=== PATIENT | female | born 1995 | race Caucasian/White ===

== ENCOUNTER 2017-10-05 15:03 | Emergency (ER) | payer MEDICAID, OTHER ==
[2017-10-05] MEDS ORDERED: NORMAL SALINE 1,000 ML IV ONE (15:30)
[2017-10-05] MEDS ORDERED: DEXAMETHASONE SODIUM PHOSPHATE 10 MG/ML VIAL IM ONE (15:30)
[2017-10-05] MEDS ORDERED: KETOROLAC TROMETHAMINE 30 MG/ML VIAL IV ONE (15:31)
[2017-10-05] MEDS ORDERED: DEXAMETHASONE SODIUM PHOSPHATE 10 MG/ML VIAL ONE (15:48)
[2017-10-05] MEDS ORDERED: KETOROLAC TROMETHAMINE 30 MG/ML VIAL ONE (15:48)
[2017-10-05 15:53] LABS: Hematocrit 39.4 % (37.0-47.0); Hemoglobin 13.2 gm/dL (12.5-16.0); Mean Cell Volume 80.6 fl (78-100); Mean Corpuscular Hgb Conc 33.5 g/dl (32-36); Mean Platelet Volume 10.3 fl (6.0-9.5); Neutrophil # 4.7 K/mm3 (1.3-6.0); Neutrophil % 65.5 % (42-75.0); Platelet Count 230 K/mm3 (150-450); Red Blood Count 4.89 M/mm3 (4.2-5.4); Red Cell Distribution Width 12.2 % (11.5-14.0); White Blood Count 7.1 K/mm3 (4.0-10.5)
[2017-10-05 16:05] LABS: Albumin * 3.5 gm/dl (3.4-5.0); BUN/Creatinine Ratio 8.1 (9.0-21.6); Bilirubin, Total 0.4 mg/dL (0.0-1.1); Calcium * 8.9 mg/dL (7.9-10.9); Carbon Dioxide 30.1 mmol/L (24-32.6); Potassium 4.1 mmol/L (3.4-4.6); Total Protein 7.8 gm/dL (6.2-8.2)
[2017-10-05] MEDS ORDERED: PROMETHAZINE HCL 25 MG/ML AMPUL IM ONE (16:15)
[2017-10-05] MEDS ORDERED: PROMETHAZINE HCL 25 MG/ML AMPUL ONE (16:18)
[2017-10-05 16:51] VITALS: BP 137/75
--- NOTE | 2017-10-05 16:54 | ERNOTE ---
[facility] Date of Service: 10/05/17 Presenting Symptoms: dental pain Time Seen by Provider: 10/05/17 15:20 Source: patient Exam Limitations: no limitations - Immun/Allergies/Home Medications Immunizations: IMMUNIZATION HX Immunizations Up to Date Yes History of Influenza Vaccine No Hx Pneumococcal Vaccination No Allergies/Adverse Reactions: Allergies Allergy/AdvReac Type Severity Reaction Status Date / Time amoxicillin [Amoxicillin] Allergy Severe Anaphylaxis Verified 10/05/17 15:20 sulfamethoxazole Allergy Intermediate Hives Verified 10/05/17 15:20 [From Bactrim] trimethoprim [From Bactrim] Allergy Intermediate Hives Verified 10/05/17 15:20 Home Medications: HOME MEDICATIONS Clindamycin HCl 150 mg PO QID 10/05/17 [Last Taken Unknown] HYDROcodone/ACETAMINOPHEN [[place] 5-325] 2 tab PO PRN 10/05/17 [Last Taken Unknown] - History of Present Illness Narrative: Patient presents to the ED for dental pain after having her wisdom teeth removed. She relates she has been having ongoing pain, tried to get ahold of her dentist but did not get a call back. pain in her bilateral wisdom teeth area. She relates she has severe tooth pain today and it caused her to get lightheaded. She felt like she was going to pass out and fell to the ground. She felt like she may have briefly passed out and hit her jaw on the carpet. She relates that she has passed out several times in the past d/t pain. no CP or SOB. No head injury. No neck pain. No N/T/W. No trouble breathing or chest pain. Severity: Present: moderate ENT Location: Present: dental Prearrival Treatment: Present: other - home meds Modifying Factors - Improves: Reports: nothing Modifying Factors - Worsens: Reports: nothing Associated Symptoms - ENT: Reports: poor solid intake, tooth pain. Denies: cough, sore throat, drooling Prior Treament: Reports: recently seen Review of Systems - Review of Systems Constitutional: Absent: fever ENT: Present: no symptoms reported Respiratory: Absent: shortness of breath Cardiology: Absent: chest pain Gastrointestinal/Abdominal: Absent: vomiting, abdominal pain Musculoskeletal: Present: no symptoms reported Skin: Absent: rash Neurological: Absent: weakness - Patient's Past Medical History Patient History - Medical: No pertinent hx Patient History - Cardiac/Respiratory: No pertinent hx Patient History - Cancer: No Hx of Cancer Patient History - Surgical Procedures: T & A, Other Patient History - Other: None LMP (females 10-50): 3 weeks - Social History Living Situations: other Abuse History: No History of abuse Psych History: No pertinent hx Smoking Status: Former smoker Have you smoked in the past 12 months: No Do you dip or chew tobacco: No Alcohol Use: none Drug Use: none - Immunizations Immunizations Up to Date: Yes Hx Pneumococcal Vaccination: No History of Influenza Vaccine: No Physical Exam - Physical Exam General Appearance: Present: alert, no apparent distress Head Exam: Present: normal inspection, no evidence of injury Eye Exam: Normal inspection: bilateral, PERRL: bilateral Ears, Nose, Throat: Present: other - There is mild bilateral jaw tenderness. No abscess. No ANUG. It appears to clot is not in the sockets bilaterally. No other facial bone tenderness. Neck: Present: normal inspection, nontender, other - no clinical findings of c- spine fracture. Absent: tender posterior midline Respiratory: Present: no respiratory distress, normal breath sounds, no accessory muscle use, lungs clear Cardiovascular/Chest: Present: regular rate, rhythm, normal peripheral pulses Gastrointestinal/Abdominal: Present: normal bowel sounds, nontender, nondistended, soft Back Exam: Present: normal range of motion Extremity Exam: Present: normal inspection, no edema, other - no DVT findings. Neurological Exam: Present: alert, no motor/sensory deficits Skin Exam: Present: normal color, warm/dry ED Progress - Results and Orders Patient's Lab Results:: I have reviewed the patient's lab results. - Vital Signs Patient's Vital Signs:: I have reviewed the patient's vital signs. Vital Signs: Vital Signs 10/05/17 10/05/17 10/05/17 15:10 15:57 16:29 Temperature 37.1 C 37.1 C 37.0 C Pulse Rate 87 80 73 Respiratory 16 16 16 Rate Blood Pressure 134/78 129/73 O2 Sat by Pulse 98 98 98 Oximetry - X-Ray X-Ray #1 X-Ray: facial bones Interpretation: Interp. by me X-ray Comments: No real time read by radiology. No gross abnormality by my exam. - Progress/Reassessment Chief Complaint: Dental Problem Progress Note-Subjective: 10/05/17 16:50 Improved with meds and IV fluids. Rhythm strip shows NSR. No suggestion of head injury, PE, dysrhythmia or other acute life threat. She feels like going home. No suggestion of airway problem. No suggestion of Duy's angina or ANUG. She needs to get back in to see the dentist. I discussed warning signs and reasons to return as well as the need for close f/u. Departure Clinical Impression: Pain, dental, Fall, Facial pain - Departure Disposition: Home self-care Condition: Stable Additional Instructions: Rest. Fluids. Continue your current medications. See your dentist as soon as possible. Follow-up with your doctor this week. Your x-rays will be read by the radiologist tomorrow, if there is a finding not identified today you will be called. Return for fever, lightheadedness or if your condition worsens or changes in any way.
== END 2017-10-05 17:02 | disposition home or self-care (01) ==
LOC: ER 15:03
DX: K08.89 Other specified disorders of teeth and supporting structures (principal); R51 Headache; Z87.891 Personal history of nicotine dependence; W19.XXXA Unspecified fall, initial encounter; Y92.89 Other specified places as the place of occurrence of the external cause

== ENCOUNTER 2018-08-28 13:55 | Inpatient (IN) ==
[2018-08-28] MEDS ORDERED: OXYTOCIN/DEXTROSE 5%-WATER 30 UNITS/500 ML BAG IV ONE (14:24)
[2018-08-28] MEDS ORDERED: ONDANSETRON HCL/PF 2 MG/ML VIAL IV PRN (14:24)
[2018-08-28] MEDS ORDERED: RINGER'S SOLUTION,LACTATED 1,000 ML IV ONE (14:24)
[2018-08-28] MEDS ORDERED: LIDOCAINE HCL 50 ML VIAL PERI PRN (14:24)
[2018-08-28] MEDS ORDERED: NALBUPHINE HCL 10 MG/ML AMPUL IV PRN ×2 (14:24)
[2018-08-28] MEDS ORDERED: MISOPROSTOL 100 MCG TABLET VG PRN (14:24)
[2018-08-28] MEDS: RINGER'S SOLUTION,LACTATED 1,000 ML IV PRN ×2 (15:42→23:09)
[2018-08-28 15:46] LABS: Cocaine Ur Negative (NEGATIVE); Urine Barbiturate Negative (NEGATIVE); Urine Benzodiazepines Negative (NEGATIVE); Urine Opiates Negative (NEGATIVE); Urine PCP Negative (NEGATIVE); Urine THC Negative (NEGATIVE)
[2018-08-28] MEDS ORDERED: FAMOTIDINE 20 MG TABLET PO ONE (16:00)
[2018-08-29] MEDS: RINGER'S SOLUTION,LACTATED 1,000 ML IV PRN (06:41)
--- NOTE | 2018-08-29 07:33 | PN ---
Progess Note - Interim Date: 08/29/18 Time: 07:30 Narrative: 08/29/18 07:30 Please refer to office visit note dated 08/28/18 for H&P. The patient received cytotec. She is currently on pitocin cvx /-3 Head not yet well applied for safe AROM Reassess in a few hours for AROM Pt desires delayed cord clamping, no bath for baby, and no baby meds FHT cat 1 ctx q 1-4 mins
--- NOTE | 2018-08-29 12:12 | PN ---
Progess Note - Interim Date: 08/29/18 Time: 12:11 Narrative: 08/29/18 12:11 Pt comfortable cvx 3/50/-2 AROM for clear fluid Pitocin currently at 18 milliunits/min ctx q 2 mins FHT cat 1 Continue to titrate pitocin up
[2018-08-29] MEDS ORDERED: BUPIVACAINE HCL/0.9 % NACL/PF 250 ML EP PRN (14:42)
[2018-08-29] MEDS ORDERED: NALOXONE HCL 1 MG/1 ML SYRG IV PRN (14:42)
[2018-08-29] MEDS ORDERED: ONDANSETRON HCL/PF 2 MG/ML VIAL IV PRN (14:42)
[2018-08-29] MEDS ORDERED: fentaNYL CITRATE/PF 50 MCG/ML AMPUL IT SCH (14:45)
--- NOTE | 2018-08-29 15:45 | ANES ---
Anesthesia Pre Procedure Eval Vitals/Labs: Last Vital Signs Temp 36.6 C 08/28/18 15:35 Pulse 107 H 08/28/18 15:35 Resp 16 08/28/18 15:35 BP 146/85 H 08/28/18 15:35 Pulse Ox 98 08/28/18 15:35 HOME MEDICATIONS vitamin,calcium,dwaizmku-dzef-qpgpz acid tablet 1 tab PO DAILY 03/12/18 [Last Taken Unknown] aspirin 81 mg tablet,delayed release 81 mg PO DAILY 04/10/18 [Last Taken 08/28/18 08:00] Allergies/Adverse Reactions: Allergies Allergy/AdvReac Type Severity Reaction Status Date / Time amoxicillin [Amoxicillin] Allergy Severe Anaphylaxis Verified 08/28/18 13:22 sulfamethoxazole Allergy Intermediate Hives Verified 08/28/18 13:22 [From Bactrim] trimethoprim [From Bactrim] Allergy Intermediate Hives Verified 08/28/18 13:22 Penicillins Allergy Anaphylaxis Verified 08/28/18 13:22 Sulfa (Sulfonamide Allergy Erythema Verified 08/28/18 13:22 Antibiotics) - Planned Procedure Planned Procedure: 37.6 WKS ELEV BP Medication List Reviewed:: Yes Allergies Verified: Yes Medical History (Last Reviewed 08/29/18 @ 15:45 by Jerome Harrison CRNA) Influenza vaccination declined by patient (Acute) Onset Date: 06/12/18 Anemia affecting Onset Date: 01/2012 Depression Onset Date: Unknown Generalized anxiety disorder Onset Date: Unknown Gonorrhea Onset Date: Unknown Pre-eclampsia Onset Date: 2009 induced hypertension Onset Date: 2011 History of wisdom tooth extraction Onset Date: Unknown Surgical History (Last Reviewed 08/29/18 @ 15:45 by Jerome Harrison CRNA) Hx of tonsillectomy Onset Date: Unknown Age 5 Family History (Last Reviewed 08/29/18 @ 15:45 by Jerome Harrison CRNA) Father Anxiety Mother Hypertension Anxiety Grandmother CHF (congestive heart failure) Paternal Great Grandmother Sister Diabetes - Family Anesthesia History Family History:: no untoward family reactions to anesthesia - Airway/Neck/Teeth Within Normal Limits:: Yes Teeth Condition: intact Neck Exam: full range of motion Mallampatti Score: 2 Thyromental (T-M) distance: > 6 cm Mandibulo Hyoid distance: > 3 cm - Respiratory Respiratory Physical: lungs clear Smoking Status: Never smoker Sleep Apnea currently treated: No Sleep Apnea by current assessment: No - Cardiovascular Tolerate Activity: Good Heart Sounds: S1 & S2, Regular - Anesthesia Assessment and Plan ASA Class: PS, II, E Anesthesia Type Plan: Epidural
--- NOTE | 2018-08-29 15:46 | ANES ---
Post Anesthesia Assessment - Vital Signs Vitals: Last Vital Signs Temp 36.6 C 08/28/18 15:35 Pulse 107 H 08/28/18 15:35 Resp 16 08/28/18 15:35 BP 146/85 H 08/28/18 15:35 Pulse Ox 98 08/28/18 15:35 Airway Patency: Normal - Mental Status Level Of Consciousness: Awake - Pain Level Pain Score: 2 - N/V Assessment Nausea/Vomiting Presence: None Dehydration:: No
--- NOTE | 2018-08-29 15:46 | ANES ---
Post Anesthesia Discharge - Transfer of Care Transfer of Care handoff given to nurse: Yes - Anesthesia Post Op Note Anesthesia Post Op Note: Care transferred to OB RN
--- NOTE | 2018-08-29 15:47 | ANES ---
Anesthesia Procedure Note Procedure Note: ANESTHESIA PROCEDURE NOTE Date of Procedure: [] 08/29/2018 Time of procedure:[]. 1500 Performed by: Herber Harrison CRNA Shoe Laster: None. Preprocedure diagnosis: Active labor. Post procedure diagnosis: Same. Procedure: Insertion of labor epidural. Indications: The patient is a [23] -year-old [multigravida] female in active labor requesting labor epidural for pain management. Findings: See below. Details of the procedure: The patient was placed in a sitting position. Back was prepped with DuraPrep. Patient was then draped in a sterile fashion. Lidocaine 1% was infiltrated to the skin and subcutaneous tissues at the level of the L3 4 interspace. The epidural space was identified using a 18-gauge Tuohy needle with [id number] technique. 20 mcg fentanyl was given intrathecally using a 27 ga. spinal needle. Epidural catheter was inserted without difficulty. Negative test dose was elicited using 3 mL of 2% preservative-free lidocaine plus epinephrine 1 200,000. The epidural catheter was then taped and secured in place. EBL: Minimal. Fluids: N/A. Specimen: N/A. Post procedure condition: The patient tolerated the procedure well. No complications were noted. Thank you for this consultation. Couch CRNA
[2018-08-29] MEDS ORDERED: LIDOCAINE HCL 50 ML VIAL ONE (16:53)
[2018-08-29] MEDS ORDERED: LIDOCAINE HCL 50 ML VIAL PERI PRN (16:54)
[2018-08-29] MEDS ORDERED: oxyCODONE HCL/ACETAMINOPHEN 1 TAB TABLET PO PRN (17:12)
[2018-08-29] MEDS ORDERED: HYDROCORTISONE 30 APPL TUBE TP PRN (17:12)
[2018-08-29] MEDS ORDERED: GLYCERIN/WITCH HAZEL LEAF 40 APPL BOX TP PRN (17:12)
[2018-08-29] MEDS ORDERED: BISACODYL 10 MG SUPP.RECT RC PRN (17:12)
[2018-08-29] MEDS ORDERED: OXYTOCIN/DEXTROSE 5%-WATER 30 UNITS/500 ML BAG IV ONE (17:12)
[2018-08-29] MEDS ORDERED: SENNOSIDES 8.6 MG TABLET PO PRN (17:12)
[2018-08-29] MEDS ORDERED: diphenhydrAMINE HCL 25 MG CAPSULE PO PRN (17:12)
--- NOTE | 2018-08-29 17:12 | OR ---
Operative Report - Dictated Report Narrative: Date of delivery: 08/29/2018 Time of delivery: 1643 Gender: female weight: 3275 grams APGARS: 9/9 The patient is a 23 year old who was admitted to labor and delivery for IOL due to pre-eclampsia without severe features. She was ripened with one dose of cytotec followed by AROM and pitocin administration. She progressed to complete dilation. She delivered a viable female in the ANGELIQUE position with a tight nuchal cord over an intact perineum. The nuchal cord was reduced after delivery. Cord clamping was delayed for 60 seconds. The placenta was delivered by expression. A right labial laceration was repaired with 4-0 vicryl. 20 mL of local were injected during the repair due to patient discomfort. EBL: 300 mL Lacerations: right labial Complications: none Definition: * The number of deliveries resulting in a live the patient experienced prior to current hospitalization * The previous delivery of live twins or any live multiple gestation is considered one live event. *If primagravida or nulliparous is documented select zero for the number of previous live births. Live Births: 2
[2018-08-29] MEDS ORDERED: OXYTOCIN 20 UNITS in RINGER'S SOLUTION,LACTATED 1,000 ML IV ONE (17:32)
[2018-08-29] MEDS: BENZOCAINE/MENTHOL 81 SPRAY CAN TP PRN (19:07)
[2018-08-29] MEDS: DOCUSATE SODIUM 100 MG CAPSULE PO SCH (20:59)
[2018-08-29] MEDS: IBUPROFEN 800 MG TABLET PO PRN (21:07)
[2018-08-30] MEDS: DOCUSATE SODIUM 100 MG CAPSULE PO SCH ×2 (09:08→22:13)
[2018-08-30] MEDS: IBUPROFEN 800 MG TABLET PO PRN ×3 (09:12→22:13)
[2018-08-30] MEDS: oxyCODONE HCL/ACETAMINOPHEN 1 TAB TABLET PO PRN ×2 (09:12→17:01)
[2018-08-30] MEDS: BENZOCAINE/MENTHOL 81 SPRAY CAN TP PRN (09:13)
--- NOTE | 2018-08-30 11:58 | PN ---
Subjective - Date and Time Seen Date: 08/30/18 Subjective Narrative: day 1, s/p induced for mild preeclampsia. no complaints. no headache or blurry vision. BP normal today. . ambulating well. normal lochia. Objective - Vitals Vitals: Last Vital Signs Temp 36 C 08/30/18 06:50 Pulse 77 08/30/18 06:50 Resp 16 08/30/18 06:50 BP 125/66 08/30/18 06:50 Pulse Ox 98 08/30/18 06:50 - Exam Constitutional: Present: Alert, Oriented x3, Cooperative Respiratory: Present: no respiratory distress Cardiovascular/Chest: Present: normal peripheral pulses Abdomen: Present: soft, nontender, nondistended, other - fundus firm Extremity: Present: normal range of motion, no pedal edema, no calf tenderness Skin Exam: Present: normal color, warm/dry, no cyanosis Appearance: Present: appropriate appearance Eye contact: Present: cooperative, good eye contact, normal speech Cauti Physician Documentation - Urinary Catheter Management Urethral (Shearer) Date of Insertion: 08/29/18 Time of Insertion: 15:35 Date of Removal: 08/29/18 Time of Removal: 16:31 Assessment/Plan Plan Narrative: A: day 1, s/p with mild preelcampsia. stable and well. Plan: routine care. preelcamptic precautions. Mike Perez MD
[2018-08-31 08:03] VITALS: BP 118/76
[2018-08-31] MEDS: IBUPROFEN 800 MG TABLET PO PRN (08:53)
[2018-08-31] MEDS: DOCUSATE SODIUM 100 MG CAPSULE PO SCH (08:54)
--- NOTE | 2018-08-31 11:23 | PN ---
Subjective - Date and Time Seen Date: 08/31/18 Subjective Narrative: day 2, s/p induced for preeclampsia. doing well. BP normal. no complaints. wants to go home. Objective - Vitals Vitals: Last Vital Signs Temp 36.4 C 08/31/18 07:59 Pulse 80 08/31/18 07:59 Resp 16 08/31/18 07:59 BP 118/76 08/31/18 07:59 Pulse Ox 97 08/31/18 07:59 - Exam Constitutional: Present: Alert, Oriented x3, Cooperative Respiratory: Present: no respiratory distress Cardiovascular/Chest: Present: normal peripheral pulses Abdomen: Present: soft, nontender, nondistended, other - fundus firm and below umbilicus Extremity: Present: normal range of motion, no calf tenderness, lower extremity edema - 1+ bilaterally Appearance: Present: appropriate appearance Eye contact: Present: cooperative, good eye contact, normal speech Cauti Physician Documentation - Urinary Catheter Management Urethral (Shearer) Date of Insertion: 08/29/18 Time of Insertion: 15:35 Date of Removal: 08/29/18 Time of Removal: 16:31 Assessment/Plan Plan Narrative: A: day 2, s/p and mild preeclampsia resolved, stable and well. plan: will discharge home today. preelcampsia precautions given. Mike Perez MD
[2018-08-31] MEDS: oxyCODONE HCL/ACETAMINOPHEN 1 TAB TABLET PO PRN (11:39)
== END 2018-08-31 12:55 | disposition home or self-care (01) | DRG 807 ==
LOC: OB 13:55 → MS 08-30 17:11
PROVIDERS: ADMIT Obstetrics & Gynecology; ATTEND Obstetrics & Gynecology
CPT/HCPCS: 59025; 80307